=== PATIENT | female | born 1995 | race Caucasian/White ===

== ENCOUNTER 2019-12-25 07:55 | Emergency (ER) | payer MEDICAID ==
[~2019-12-25] VITALS: Ht 157.5 cm; Wt 70.3 kg
[2019-12-25 08:05] VITALS: BP 127/83
[2019-12-25 08:38] VITALS: BP 127/83
== END 2019-12-25 08:39 | disposition home or self-care (01) ==
LOC: MED 07:55
DX: F32.9 Major depressive disorder, single episode, unspecified (principal); Z76.0 Encounter for issue of repeat prescription; Z91.040 Latex allergy status
CPT/HCPCS: 99281